=== PATIENT | male | born 1945 | race Caucasian/White ===

== ENCOUNTER 2021-09-18 08:59 | Inpatient (IN) | payer MEDICARE ==
[2021-09-29 15:17] VITALS: BMI 29.8
[2021-10-03] MEDS ORDERED: ceFAZolin 2 GM/DEX 5% 100 ML BAG ONE (06:05)
[2021-10-03] MEDS ORDERED: Sodium Chloride 0.9% 100 ML ONE (06:05)
[2021-10-03] MEDS ORDERED: Tranexamic Acid 1,000 MG/10 ML VIAL ONE (06:05)
[2021-10-03] MEDS ORDERED: Vancomycin 1.5 GRAM/300 ML BAG 1.5 GM in Premix Bag 1 BAG IVPB SCH (06:15)
[2021-10-03] MEDS ORDERED: Bupivacaine PF 0.5% 30 ML VIAL ONE (06:20)
[2021-10-03] MEDS ORDERED: Fentanyl 100 MCG/2 ML VIAL ONE ×3 (06:49→09:19)
[2021-10-03] MEDS ORDERED: Midazolam HCl 2 mg/2 ml Vial ONE (06:49)
[2021-10-03 06:59] LABS: #Eosinphils 0.3 thou/uL (0.0-0.7); #Lymphocytes 2.1 thou/uL (1.20-3.40); #Monocytes 0.5 thou/uL (0.11-0.59); #Neutrophils 1.7 thou/uL (1.40-6.50); %Basophils 0.4 % (0.0-1.0); %Eosinophils 6.7 % (0.0-10.0); %Lymphocytes 45.5 % (21.0-51.0); %Monocytes 10.4 % (0.0-10.0); Hemoglobin 15.1 g/dL (14.0-18.0); Mean Corpuscular HGB CONC 33.5 g/dL (32.0-36.0); Mean Corpuscular Hemoglobin 31.2 pg (27.0-31.0); Mean Corpuscular Volume 93.3 fL (78.0-98.0); Platelet Count 218 thou/uL (130-400); RBC Distribution Width 11.3 % (11.5-14.5); Red Blood Cell (RBC) Count 4.82 mill/uL (4.70-6.10); White Blood Cell (WBC) Count 4.6 thou/uL (4.8-10.8)
[2021-10-03] MEDS ORDERED: PROPOFOL 200 MG/20 ML VIAL ONE (07:10)
[2021-10-03] MEDS ORDERED: Bupivacaine HCl 0.5%/Epinephrine 1:200,000/PF 30 ml Vial ONE (07:10)
[2021-10-03] MEDS ORDERED: Dexamethasone 20 MG/5 ML VIAL ONE (07:10)
[2021-10-03] MEDS ORDERED: Ketorolac Tromethamine 30 MG/ML VIAL ONE (07:10)
[2021-10-03] MEDS ORDERED: Ondansetron PF 4 MG/2 ML Vial ONE (07:10)
[2021-10-03] MEDS ORDERED: ePHEDrine 50 MG/ML VIAL ONE (07:10)
[2021-10-03] MEDS ORDERED: Rocuronium Bromide 10 MG/ML (10ML VIAL) ONE (07:10)
[2021-10-03] MEDS ORDERED: HYDROcodone/Acetaminophen 10/325 mg Tablet PO PRN ×4 (07:18→08:30)
[2021-10-03] MEDS ORDERED: Zolpidem Tartrate 5 MG TAB PO PRN ×2 (07:18→08:30)
[2021-10-03] MEDS ORDERED: Acetaminophen 325 MG TAB PO PRN (07:18)
[2021-10-03] MEDS ORDERED: Promethazine HCl 25 MG/ML VIAL IM PRN ×2 (07:18→08:30)
[2021-10-03] MEDS ORDERED: Ondansetron PF 4 MG/2 ML Vial IVP PRN ×2 (07:18→08:30)
[2021-10-03] MEDS ORDERED: diphenhydrAMINE 25 MG CAP PO PRN (07:18)
[2021-10-03 07:21] LABS: Anion Gap 10 mmol/L (10-20); BUN (Urea Nitrogen) 18 mg/dL (8.4-25.7); Calc. Creatinine Clearance 102 mL/min (70-130); Calcium 9.6 mg/dL (7.8-10.44); Carbon Dioxide 26 mmol/L (23-31); Chloride 109 mmol/L (98-107); Glucose 103 mg/dL (83-110); Potassium 4.1 mmol/L (3.5-5.1); Sodium 141 mmol/L (136-145)
[2021-10-03] MEDS ORDERED: Fentanyl 100 MCG/2 ML VIAL IV PRN (08:26)
[2021-10-03] MEDS ORDERED: traMADol HCl 50 MG TAB PO PRN ×2 (08:30)
[2021-10-03] MEDS ORDERED: Ropivacaine 0.2% 550 ML 550 ML NERVE BLCK SCH (08:30)
[2021-10-03] MEDS ORDERED: Non-Formulary Item 1 EACH (Multivitamin [Multi-Vitamin Daily] 1 TABLET Tablet) PO SCH (09:00)
[2021-10-03] MEDS ORDERED: Multivit, Therapeutic 1 TAB PO SCH (09:00)
[2021-10-03] MEDS ORDERED: Non-Formulary Item 1 EACH (Zinc [Zinc] 50 MG Tablet) PO SCH (09:00)
[2021-10-03] MEDS ORDERED: Non-Formulary Item 1 EACH (Cholecalciferol (Vitamin D3) [Vitamin D3] 5,000 UNITS Capsule) PO SCH (09:00)
[2021-10-03] MEDS: Sodium Chloride 0.9% 1,000 ML IV SCH ×2 (12:34→22:18)
[2021-10-03] MEDS: Aspirin 81 mg Enteric Coated Tablet PO SCH ×2 (12:35→22:19)
[2021-10-03] MEDS: Cholecalciferol 1,000 UNITS (25 MCG) TAB PO SCH (12:35)
[2021-10-03] MEDS: Ketorolac Tromethamine 30 MG/ML VIAL IVP SCH ×2 (12:36→17:06)
[2021-10-03] MEDS: Multivitamin W/ Minerals 1 TAB PO SCH (12:38)
[2021-10-03] MEDS: Ferrous Gluconate 324 MG TAB PO SCH ×2 (12:39→22:20)
[2021-10-03] MEDS: Senokot S 8.6-50 MG TAB PO SCH ×2 (12:39→22:22)
[2021-10-03] MEDS: Zinc Sulfate 220 MG CAP PO SCH (12:39)
[2021-10-03] MEDS: ceFAZolin Sodium/D5W 2 GM in Premix Bag 1 BAG IVPB SCH ×2 (13:31→22:20)
[2021-10-03] MEDS ORDERED: Ketorolac Tromethamine 30 MG/ML VIAL IVP SCH (14:00)
[2021-10-04] MEDS: Ketorolac Tromethamine 30 MG/ML VIAL IVP SCH ×2 (00:42→06:30)
[2021-10-04] MEDS: Sodium Chloride 0.9% 1,000 ML IV SCH (04:42)
[2021-10-04 07:20] LABS: Hemoglobin 12.9 g/dL (14.0-18.0); Mean Corpuscular HGB CONC 34.9 g/dL (32.0-36.0); Mean Corpuscular Hemoglobin 32.6 pg (27.0-31.0); Mean Corpuscular Volume 93.4 fL (78.0-98.0); Mean Platelet Volume 7.3 fL (7.4-10.4); Platelet Count 199 thou/uL (130-400); RBC Distribution Width 11.2 % (11.5-14.5); Red Blood Cell (RBC) Count 3.97 mill/uL (4.70-6.10); White Blood Cell (WBC) Count 9.2 thou/uL (4.8-10.8)
[2021-10-04] MEDS: Zinc Sulfate 220 MG CAP PO SCH (09:50)
[2021-10-04] MEDS: Ferrous Gluconate 324 MG TAB PO SCH (09:50)
[2021-10-04] MEDS: Aspirin 81 mg Enteric Coated Tablet PO SCH (09:50)
[2021-10-04] MEDS: Multivitamin W/ Minerals 1 TAB PO SCH (09:50)
[2021-10-04] MEDS: Senokot S 8.6-50 MG TAB PO SCH (09:51)
[2021-10-04] MEDS: Cholecalciferol 1,000 UNITS (25 MCG) TAB PO SCH (09:51)
[2021-10-04 12:06] VITALS: BP 122/68; TEMP 97.9
== END 2021-10-04 14:00 | disposition home or self-care (01) | DRG 470 ==
LOC: EDSTATUS 09-26 14:06 → SURG A 10-03 05:44 → SJJU 10-03 10:06
PROVIDERS: ADMIT Orthopaedic Surgery; ATTEND Orthopaedic Surgery
PROC: 0SRD0J9 Replacement of Left Knee Joint with Synthetic Substitute, Cemented, Open Approach (ICD-10-PCS; principal; 2021-10-03)
DX: M17.12 Unilateral primary osteoarthritis, left knee (principal); E78.5 Hyperlipidemia, unspecified; Z87.891 Personal history of nicotine dependence; Z79.899 Other long term (current) drug therapy
CPT/HCPCS: 36415; 80048; 85025; 85027; 93005; 93010; A4306; C1713; C1776; J1100; J1885; J2250; J2405; J2704; J2795; J3010; J3490; J7050; S0020